=== PATIENT | male | born 1990 | race Caucasian/White ===

== ENCOUNTER 2016-07-11 17:16 | Emergency (ER) | payer OTHER ==
--- NOTE | 2016-07-14 12:11 | ER ---
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 See T-sheet for history and physical. He received #4, 4-0 sutures for the 3 cm laceration, a tetanus update. Instructed to remove the sutures in 7-10 days. DIAGNOSIS: Laceration repair. Zac Randle MD/ roman JOB #: [id number] CC: Zac Randle MD, Attending Physician Robbie Morales MD, Family Physician
== END 2016-07-11 18:00 | disposition home or self-care (01) ==
LOC: ER 17:16
PROC: 0HQFXZZ Repair Right Hand Skin, External Approach (ICD-10-PCS; principal; 2016-07-11)
DX: S51.811A Laceration without foreign body of right forearm, initial encounter (principal); Z23 Encounter for immunization; W26.0XXA Contact with knife, initial encounter; Y92.69 Other specified industrial and construction area as the place of occurrence of the external cause